=== PATIENT | female | born 1985 | race Two or more races ===

== ENCOUNTER 2022-05-19 09:30 | Outpatient (CLI) | payer OTHER | END 2022-05-19 09:47 | disposition home or self-care (01) | LOC: RX STUDY 09:30 | PROVIDERS: ATTEND Obstetrics & Gynecology Reproductive Endocrinology | DX: N92.1 Excessive and frequent menstruation with irregular cycle (principal); N93.9 Abnormal uterine and vaginal bleeding, unspecified; Q50.6 Other congenital malformations of fallopian tube and broad ligament ==

== ENCOUNTER 2023-08-28 10:11 | Outpatient (CLI) | payer OTHER | END 2023-08-28 10:12 | disposition home or self-care (01) | LOC: PRENATAL 10:11 | PROVIDERS: ATTEND Obstetrics & Gynecology Maternal & Fetal Medicine | DX: O36.80X0 Pregnancy with inconclusive fetal viability, not applicable or unspecified (principal); Z36.82 Encounter for antenatal screening for nuchal translucency; O09.519 Supervision of elderly primigravida, unspecified trimester; O09.819 Supervision of pregnancy resulting from assisted reproductive technology, unspecified trimester; O34.00 Maternal care for unspecified congenital malformation of uterus, unspecified trimester; Z3A.11 11 weeks gestation of pregnancy ==

== ENCOUNTER 2023-09-11 19:21 | Emergency (ER) | payer OTHER ==
[~2023-09-11] VITALS: Ht 157.5 cm; Wt 105.7 kg
== END 2023-09-11 21:59 | disposition home or self-care (01) ==
LOC: ER 19:21
DX: U07.1 COVID-19 (principal); Z3A.14 14 weeks gestation of pregnancy; Z88.1 Allergy status to other antibiotic agents

== ENCOUNTER 2023-11-01 07:58 | Outpatient (CLI) | payer OTHER | END 2023-11-01 08:00 | disposition home or self-care (01) | LOC: PRENATAL 07:58 | PROVIDERS: ATTEND Obstetrics & Gynecology Maternal & Fetal Medicine | DX: O35.9XX0 Maternal care for (suspected) fetal abnormality and damage, unspecified, not applicable or unspecified (principal); O35.3XX0 Maternal care for (suspected) damage to fetus from viral disease in mother, not applicable or unspecified; O44.00 Complete placenta previa NOS or without hemorrhage, unspecified trimester; O09.519 Supervision of elderly primigravida, unspecified trimester; Z3A.20 20 weeks gestation of pregnancy ==

== ENCOUNTER 2023-12-01 19:55 | Outpatient (CLI) | payer OTHER ==
[2023-12-01] MEDS ORDERED: PRENATA CHEWAB1 EACH PO (20:12)
[2023-12-01] MEDS ORDERED: RINGERS SOLUTION,LACTATED 1,000 ML IV SCH (20:15)
[2023-12-01 20:49] LABS: HEMATOCRIT 33.3 % (36.0-45.00); HEMOGLOBIN 11.3 g/dL (12.0-15.00); MEAN CORPUSCULAR HGB CONC 33.8 g/dl (32.0-36.0); PLATELET COUNT 216 K/uL (150-450); RED BLOOD COUNT 4.02 M/uL (4.00-6.00); RED CELL DISTRIBUTION WIDTH 13.8 % (11.5-14.5)
[2023-12-01 21:14] LABS: ALBUMIN 2.6 gm/dL (3.4-5.0); BILIRUBIN TOTAL 0.2 mg/dL (0.3-1.2); CALCIUM 9.1 mg/dL (8.5-10.1); CREATININE SERUM 0.57 mg/dL (0.55-1.02); GFR 120.01; POTASSIUM 4.28 mEq/L (3.5-5.1); TOTAL PROTEIN 6.6 gm/dL (6.4-8.2)
[2023-12-01 21:43] LABS: URINE APPEARANCE Clear; URINE BILIRRUBIN Negative (NEGATIVE); URINE BLOOD Negative; URINE COLOR Yellow; URINE GLUCOSE Negative (NEGATIVE); URINE LEUKOCYTE Negative; URINE NITRATE Negative; URINE PROTEIN 30 (NEGATIVE)
[2023-12-01 21:46] LABS: URINE BACTERIA 1463.9 uL (0.0-1933); URINE EPITHELIAL CELLS 64.4 uL (0.0-38.8); URINE WBC 23.3 uL (0.0-23.2)
== END 2023-12-02 00:26 | disposition home or self-care (01) ==
LOC: OBS/DEL 19:55
PROVIDERS: Obstetrics & Gynecology; ATTEND Specialist
DX: O26.892 Other specified pregnancy related conditions, second trimester (principal); Z3A.25 25 weeks gestation of pregnancy

== ENCOUNTER → 2024-01-22 08:17 | Outpatient (CLI) | payer OTHER ==
[~2024-01-22 08:17] MED LIST: PRENATA CHEWAB1 EACH PO
== END | disposition home or self-care (01) ==
LOC: PRENATAL 08:17
PROVIDERS: ATTEND Obstetrics & Gynecology Maternal & Fetal Medicine
DX: O26.849 Uterine size-date discrepancy, unspecified trimester (principal); O36.8199 Decreased fetal movements, unspecified trimester, other fetus; O09.519 Supervision of elderly primigravida, unspecified trimester; O09.819 Supervision of pregnancy resulting from assisted reproductive technology, unspecified trimester; O36.5990 Maternal care for other known or suspected poor fetal growth, unspecified trimester, not applicable or unspecified; Z3A.32 32 weeks gestation of pregnancy

== ENCOUNTER 2024-01-22 12:08 | Inpatient (IN) | payer OTHER ==
[~2024-01-22] VITALS: Ht 157.5 cm; Wt 111.1 kg
[2024-01-22] MEDS ORDERED: LABETALOL HCL 100 MG TABLET PO SCH (12:14)
[2024-01-22] MEDS ORDERED: RINGERS SOLUTION,LACTATED 1,000 ML IV SCH (12:15)
[2024-01-22] MEDS ORDERED: MAGNESIUM SULFATE IN WATER 4 GM/100 ML PIGGYBACK IV ONE (12:15)
[2024-01-22] MEDS ORDERED: BETAMETHASONE ACETATE,SOD PHOS 30 MG/5 ML ML IM ONE (12:15)
[2024-01-22 12:53] LABS: HEMATOCRIT 35.4 % (36.0-45.00); HEMOGLOBIN 11.7 g/dL (12.0-15.00); MEAN CELL VOLUME 83.6 fL (80.00-100.00); MEAN CORPUSCULAR HEMOGLOBIN 27.6 pg (27.00-32.0); MEAN CORPUSCULAR HGB CONC 33.1 g/dl (32.0-36.0); PLATELET COUNT 176 K/uL (150-450); RED BLOOD COUNT 4.24 M/uL (4.00-6.00); RED CELL DISTRIBUTION WIDTH 13.4 % (11.5-14.5)
[2024-01-22 12:55] LABS: PH,URINE 6.5 (5.0-8.0); URINE APPEARANCE Turbid; URINE BILIRRUBIN Negative (NEGATIVE); URINE BLOOD Negative; URINE COLOR Yellow; URINE GLUCOSE Negative (NEGATIVE); URINE LEUKOCYTE Negative; URINE NITRATE Negative; URINE UROBILINOGEN 0.2 E.U./dl
[2024-01-22 13:01] LABS: URINE BACTERIA 1091.1 uL (0.0-1933); URINE EPITHELIAL CELLS 78.4 uL (0.0-38.8); URINE RBC 3.5 uL (0.0-20.8); URINE WBC 10.8 uL (0.0-23.2)
[2024-01-22 13:04] LABS: URINE PROTEIN 100 (NEGATIVE)
[2024-01-22 13:17] LABS: ALBUMIN 2.4 gm/dL (3.4-5.0); BILIRUBIN TOTAL 0.14 mg/dL (0.3-1.2); CREATININE SERUM 0.62 mg/dL (0.55-1.02); GFR 108.91; GLOBULINA 3.7 G/DL (2.4-3.5); POTASSIUM 4.78 mEq/L (3.5-5.1); TOTAL PROTEIN 6.1 gm/dL (6.4-8.2)
[2024-01-22 13:27] LABS: INR < 0.93; PARTIAL THROMBOPLASTIN TIME 27.1 SECONDS (22.0-34.0); PROTHROMBIN TIME 9.4 SECONDS (9.0-11.5)
[2024-01-22] MEDS ORDERED: MAGNESIUM SULFATE IN WATER 0.04 GM/ML IV.SOLN IV ONE (16:07)
[2024-01-22] MEDS ORDERED: MAGNESIUM SULFATE IN WATER 500 ML IV SCH (16:15)
[2024-01-22] MEDS ORDERED: LABETALOL HCL 200 MG TABLET PO ONE (20:15)
[2024-01-22] MEDS ORDERED: FAMOTIDINE/PF 20 MG/2 ML VIAL IV ONE (20:15)
[2024-01-23] MEDS ORDERED: BETAMETHASONE ACETATE,SOD PHOS 30 MG/5 ML ML IM ONE ×2 (09:00→12:15)
[2024-01-23] MEDS ORDERED: LABETALOL HCL 200 MG TABLET PO SCH (09:00)
[2024-01-24 10:12] LABS: URINE PROT QUANT 24HR 30.3 MG/DL
[2024-01-24 10:15] LABS: URINE PROT QUANT 24 HR 1090.8 MG/24HR (42-225)
[2024-01-24] MEDS ORDERED: OXYTOCIN 10 UNITS/ML VIAL ONE (13:27)
[2024-01-24] MEDS ORDERED: ERYTHROMYCIN BASE 3.5 GM OINT...G. OP ONE (13:27)
[2024-01-24] MEDS ORDERED: CEFAZOLIN SODIUM 1,000 MG VIAL ONE ×2 (13:27→13:39)
[2024-01-24 13:37] LABS: CREATINE CLEARANCE 104.4 ML/MIN (97-137); CREATININE SERUM 0.78 mg/dL (0.6-1.0)
[2024-01-24 13:38] LABS: CREATININE SERUM 0.78 mg/dL (0.6-1.0)
[2024-01-24] MEDS ORDERED: CEFAZOLIN SODIUM 1,000 MG VIAL IV SCH ×2 (14:00→20:00)
[2024-01-24] MEDS ORDERED: ERYTHROMYCIN BASE 1 GM TUBE OP ONE (15:30)
[2024-01-24] MEDS ORDERED: MEPERIDINE HCL/PF 50 MG/ML VIAL IM PRN (15:30)
[2024-01-24] MEDS ORDERED: PROMETHAZINE HCL 50 MG/ML AMPUL IM PRN (15:30)
[2024-01-24] MEDS ORDERED: RINGERS SOLUTION,LACTATED 1,000 ML IV SCH (15:30)
[2024-01-24] MEDS ORDERED: OXYTOCIN 20 UNITS/1000ML RL PIGGYBAG IV ONE (15:30)
[2024-01-24] MEDS ORDERED: PROMETHAZINE HCL 25 MG/ML AMPUL ONE (23:58)
[2024-01-25] MEDS ORDERED: OXYTOCIN 20 UNITS/1000ML RL PIGGYBAG IV ONE (00:51)
[2024-01-25 01:32] LABS: HEMATOCRIT 30.9 % (36.0-45.00); HEMOGLOBIN 10.2 g/dL (12.0-15.00); MEAN CELL VOLUME 84.8 fL (80.00-100.00); PLATELET COUNT 154 K/uL (150-450); RED BLOOD COUNT 3.65 M/uL (4.00-6.00)
[2024-01-25] MEDS ORDERED: ACETAMINOPHEN 500 MG GEL..CAP PO PRN (06:15)
[2024-01-25] MEDS ORDERED: OxyCODONE HCL/APAP UD (PERCOCET) PO PRN (06:15)
[2024-01-26] MEDS ORDERED: BISACODYL 10 MG/SUPP.RECT SUPP.RECT RECTAL STA (12:21)
[2024-01-28] MEDS ORDERED: IBUPROFEN800 MG PO (08:08)
[2024-01-28] MEDS ORDERED: LABETALOL HCL200 MG PO (08:08)
== END 2024-01-28 17:03 | disposition home or self-care (01) | DRG 786 ==
LOC: OBS/DEL 12:08 → LDR 20:07 → OBS/DEL 20:07 → OB/GYN 01-24 17:24 → LDR 01-24 18:42 → OB/GYN 01-25 14:39
PROVIDERS: ADMIT Specialist; ATTEND Specialist
PROC: 4A1HXCZ Monitoring of Products of Conception, Cardiac Rate, External Approach (ICD-10-PCS; 2024-01-22)
PROC: 0DQ80ZZ Repair Small Intestine, Open Approach (ICD-10-PCS; 2024-01-24)
PROC: 3E033VJ Introduction of Other Hormone into Peripheral Vein, Percutaneous Approach (ICD-10-PCS; 2024-01-24)
PROC: 10D00Z1 Extraction of Products of Conception, Low, Open Approach (ICD-10-PCS; principal; 2024-01-24 13:00)
DX: O36.8330 Maternal care for abnormalities of the fetal heart rate or rhythm, third trimester, not applicable or unspecified (principal); O60.14X0 Preterm labor third trimester with preterm delivery third trimester, not applicable or unspecified; K91.72 Accidental puncture and laceration of a digestive system organ or structure during other procedure; O71.89 Other specified obstetric trauma; O14.14 Severe pre-eclampsia complicating childbirth; O36.5930 Maternal care for other known or suspected poor fetal growth, third trimester, not applicable or unspecified; O13.4 Gestational [pregnancy-induced] hypertension without significant proteinuria, complicating childbirth; H54.8 Legal blindness, as defined in USA; O34.03 Maternal care for unspecified congenital malformation of uterus, third trimester; Q51.3 Bicornate uterus; O99.214 Obesity complicating childbirth; E66.9 Obesity, unspecified; O32.1XX0 Maternal care for breech presentation, not applicable or unspecified; Z3A.32 32 weeks gestation of pregnancy; Z37.0 Single live birth; Z20.822 Contact with and (suspected) exposure to COVID-19